=== PATIENT | male | born 1980 | race Caucasian/White ===

== ENCOUNTER 2017-08-18 07:53 | Inpatient (IN) | payer BC, OTHER ==
[~2017-08-18] VITALS: Ht 185.4 cm; Wt 72.6 kg
[2017-08-18 01:30] VITALS: BP 137/86
--- NOTE | 2017-08-19 01:20 | NUR ---
Pre-Admission Patient seen in intake office. Patient is noted to moderately intoxicated but stable at this time to continue with admission assessment. V/S noted as: 137/86, 64, 18, 98.0, 99%, 0/10. Policies on medication disposal explained and understood by patient. No Home Medications noted with patient. Will continue with admission process to unit.
[2017-08-19 01:45] LABS: *AMPHETAMINE, URINE POSITIVE (NEGATIVE); *BARBITURATE, URINE NEGATIVE (NEGATIVE); *CANNABINOID, URINE NEGATIVE (NEGATIVE); *COCCAINE, URINE POSITIVE (NEGATIVE); *OPIATE, URINE POSITIVE (NEGATIVE); *PHENCYCLIDINE SCREEN,URINE NEGATIVE (NEGATIVE)
[2017-08-19] MEDS ORDERED: ACETAMINOPHEN 325 MG TABLET PO PRN (01:45)
[2017-08-19] MEDS ORDERED: DICYCLOMINE HCL 20 MG TABLET PO PRN (01:45)
[2017-08-19] MEDS ORDERED: IBUPROFEN 400 MG TABLET PO PRN (01:45)
[2017-08-19] MEDS ORDERED: ONDANSETRON ODT 4 MG TAB.RAPDIS SL PRN (01:45)
[2017-08-19] MEDS ORDERED: MAG HYDROX/AL HYDROX/SIMETH 30 ML LIQUID UDC PO PRN (01:45)
[2017-08-19] MEDS ORDERED: MAGNESIUM HYDROXIDE 30 ML LIQUID UDC PO PRN (01:45)
[2017-08-19] MEDS ORDERED: HYDROXYZINE PAMOATE 25 MG CAPSULE PO PRN (01:45)
[2017-08-19] MEDS ORDERED: ONDANSETRON 4 MG/2 ML VIAL IM PRN (01:45)
[2017-08-19] MEDS ORDERED: diphenhydrAMINE 50 MG CAPSULE PO PRN (01:45)
[2017-08-19] MEDS ORDERED: MIRALAX 17 GM POWD.PACK PO PRN (01:45)
[2017-08-19] MEDS ORDERED: LOPERAMIDE HCL 2 MG CAPSULE PO PRN (01:45)
[2017-08-19] MEDS ORDERED: BUPRENORPHINE HCL 2 MG TAB.SUBL SL PRN (01:45)
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
[2017-08-19 04:00] VITALS: BP 110/60
[2017-08-19 06:52] LABS: RED BLOOD CELL COUNT(AUTO) 5.62 MIL/UL (4.7-6.1); WHITE BLOOD COUNT (AUTO) 7.4 K/UL (4.0-11.2)
[2017-08-19 06:53] LABS: BASOPHILS % (AUTO) 1.3 % (0.0-2.0); EOSINOPHILS % (AUTO) 3.1 % (0.0-7.0); HEMATOCRIT 47.6 % (40-50); HEMOGLOBIN 15.6 G/DL (14.0-18.0); LYMPHOCYTES % (AUTO) 32.8 % (20.5-51.5); MEAN CORPUSCULAR HEMOGLOBIN 27.8 UUG (27.0-31.0); MEAN CORPUSCULAR HGB CONC 33 g/dL (32.0-37.0); MEAN CORPUSCULAR VOLUME 84.6 FL (82.0-92.0); MONOCYTES % (AUTO) 7.3 % (0.0-11.0); NEUTROPHILS % (AUTO) 55.5 % (38.5-71.5); PLATELET COUNT (AUTO) 343 K/UL (150-450)
[2017-08-19 06:54] LABS: BASOPHILS # (AUTO) 0.1 K/uL (0.0-8.0); EOSINOPHILS # (AUTO) 0.2 K/uL (0.0-0.7); LYMPHOCYTES # (AUTO) 2.4 K/UL (0.8-4.8); MONOCYTES # (AUTO) 0.5 K/UL (0.1-1.30); NEUTROPHILS # (AUTO) 4.2 K/UL (1.8-8.9)
[2017-08-19 06:56] LABS: CARBON DIOXIDE 27 mmol/L (21-32); CHLORIDE 100 mmol/L (98-107); CREATININE 1.1 mg/dL (0.6-1.3); GLUCOSE 83 mg/dL (74-106); POTASSIUM 3.4 mmol/L (3.5-5.1); UREA NITROGEN, BLOOD 9 mg/dL (7-20)
[2017-08-19 06:57] LABS: ALANINE AMINOTRANSFERASE 34 U/L (16-63); ALKALINE PHOSPHATASE 107 U/L (50-136); AMYLASE 49 U/L (25-115); ASPARTATE AMINOTRANSFERASE 27 U/L (15-37); BILIRUBIN,TOTAL 0.7 mg/dL (0.1-1.0); TOTAL PROTEIN, SERUM 8.9 g/dL (6.4-8.2)
[2017-08-19 06:58] LABS: ETHANOL < 3 MG/DL (0-0); LIPASE 96 U/L (73-393); THYROID STIMULATING HORMONE 1.635 mIU/mL (0.358-3.740)
--- NOTE | 2017-08-19 07:08 | NUR ---
Start of Shift Endorsement received from nightshift nurse. Pt is a 37 y/o male admitted for Heroin and cocaine dependence. Pt has not been placed on a taper at this time. Symptoms will be managed by PRN medications at this time. PT did not receive any PRN medications. Pt is moderately withdrawing AEB COWS 9 at 1999. Pt reports sleeping 4 hours. VS WNL. Fulll Code. PT is alert and oriented x4. Pt is in STABLE condition at this time. Remains compliant with medication and diet regimen. All needs have been met, All safety measures in place per hospital policy. Bed in lowest position, side rails up x2, call-light within reach. Will continue to monitor
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
[2017-08-19 08:00] VITALS: BP 102/67
[2017-08-19] MEDS ORDERED: TUBERCULIN,PURIF.PROT.DERIV. 5 TU/0.1 ML TEST ID ONE (09:00)
[2017-08-19] MEDS ORDERED: POTASSIUM CHLORIDE 10 MEQ CAPSULE.SA PO ONE (09:30)
[2017-08-19] MEDS: MULTIVITAMINS,THERAPEUTIC TABLET PO SCH (09:49)
[2017-08-19 12:00] VITALS: BP 113/64
--- NOTE | 2017-08-19 12:35 | NUR ---
PRN Medications Administered PRN Motrin, Robaxin, Bentyl and Clonidine for withdrawal symptoms.
[2017-08-19] MEDS: METHOCARBAMOL 750 MG TABLET PO PRN (12:41)
[2017-08-19] MEDS: CLONIDINE HCL 0.1 MG TABLET PO PRN (12:41)
--- NOTE | 2017-08-19 12:50 | NUR ---
Medication Re-assessment Medications were effective, PT reports relief from chills, body aches and stomach cramps have stopped.
[2017-08-19 16:00] VITALS: BP 116/85
--- NOTE | 2017-08-19 19:06 | NUR ---
End of Shift Endorsement given to nightshift nurse. Pt is a 37 y/o male admitted for Heroin and cocaine dependence. Pt has not been placed on a taper at this time. Symptoms will be managed by PRN medications at this time. PT did received PRN Motrin, Clonidine, Robaxin and Bentyl. Medications were effective. Pt is moderately withdrawing AEB COWS 6 at 1600. Pt participated in activities and groups. Pt is cooperative and reports readiness for sobriety. Educated pt on S/E of medications. Intake: 1320ml, Void x3, BM x2. VS WNL. Fulll Code. PT is alert and oriented x4. Pt is in STABLE condition at this time. Remains compliant with medication and diet regimen. All needs have been met, All safety measures in place per hospital policy. Bed in lowest position, side rails up x2, call-light within reach. Will continue to monitor
[2017-08-19 20:30] VITALS: BP 104/69
[2017-08-20 00:27] VITALS: BP 103/59
--- NOTE | 2017-08-20 07:10 | NUR ---
Start of Shift Endorsement received from nightshift nurse. Pt is a 37 y/o male admitted for Heroin and cocaine dependence. Pt has been placed on a Subutex. PT is tolerating the taper and the detox process AEB COWS 4 at midnight. PT received PRN Subutex, Robaxin and Benadryl. Pt will began the Subutex taper today. Pt reports sleeping 8 hours. VS WNL. Fulll Code. PT is alert and oriented x4. Pt is in STABLE condition at this time. Remains compliant with medication and diet regimen. All needs have been met, All safety measures in place per hospital policy. Bed in lowest position, side rails up x2, call-light within reach. Will continue to monitor
[2017-08-20 08:00] VITALS: BP 101/59
[2017-08-20] MEDS: MULTIVITAMINS,THERAPEUTIC TABLET PO SCH (09:00)
[2017-08-20] MEDS: BUPRENORPHINE HCL 2 MG TAB.SUBL SL SCH ×3 (09:00→20:45)
[2017-08-20 10:09] LABS: HEPATITIS B SURFACE AG Negative (Negative)
[2017-08-20 12:00] VITALS: BP 114/62
--- NOTE | 2017-08-20 13:19 | NUR ---
Therapist prompted client to attend group today. Cleint agreed to attend group.
[2017-08-20 16:00] VITALS: BP 109/67
--- NOTE | 2017-08-20 18:52 | NUR ---
End of Shift Endorsement given to nightshift nurse. Pt is a 37 y/o male admitted for Heroin and cocaine dependence. Pt has been placed on a Subutex taper. PT is tolerating the taper AEB COWS 4. Pt participated in activities and groups. Pt is cooperative and reports readiness for sobriety. Educated pt diet and medication regimen. Educated pt on deep breathing technique to help relieve minor to moderate anxiety. Intake: 2400ml, Void x3, BM x1. VS WNL. Fulll Code. PT is alert and oriented x4. Pt is in STABLE condition at this time. Remains compliant with medication and diet regimen. All needs have been met, All safety measures in place per hospital policy. Bed in lowest position, side rails up x2, call-light within reach. Will continue to monitor
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
[2017-08-20 20:37] VITALS: BP 123/84
[2017-08-20] MEDS: METHOCARBAMOL 750 MG TABLET PO PRN (20:45)
[2017-08-20] MEDS: CLONIDINE HCL 0.1 MG TABLET PO PRN (20:45)
--- NOTE | 2017-08-20 20:45 | NUR ---
PRN Medication Administration Patient is verbalizing increased anxiety, agitation, chills, body aches, with inability of falling asleep. PRN Robaxin, Clonidine, and Benadryl administered as per order. Will continue to monitor.
--- NOTE | 2017-08-20 21:45 | NUR ---
PRN Medication Reassessment Patient noted in bed sleeping. Breathing even and non labored. Patient received PRN Clonidine, Robaxin, and Benadryl with medication noted to be effective. Will continue to monitor.
[2017-08-21 00:16] VITALS: BP 116/73
[2017-08-21 04:06] VITALS: BP 111/76
--- NOTE | 2017-08-21 07:10 | NUR ---
Start of Shift Endorsement received from nightshift nurse. Pt is a 37 y/o male admitted for Heroin and cocaine dependence. Pt has been placed on a Subutex. PT is tolerating the taper and the detox process AEB COWS 9 at 2100. PT received PRN Benadryl, Robaxin and Clonidine. Pt reports sleeping 6 hours. Pt reports feeling rested. VS WNL. Fulll Code. PT is alert and oriented x4. Pt is in STABLE condition at this time. Remains compliant with medication and diet regimen. All needs have been met, All safety measures in place per hospital policy. Bed in lowest position, side rails up x2, call-light within reach. Will continue to monitor
--- NOTE | 2017-08-21 07:21 | NUR ---
End of Shift Patient is in bed sleeping. Breathing even and non labored. Patient is a 37 year old male admitted 08/19/17 for Opiate Dependence under the care of Dr. Cifuentes and continues on a 5 day Subutex taper. No known allergies, Full code, Regular diet, placed on fall precautions, with skin noted intact. Patient given PRN Clonidine, Robaxin, and Benadryl. Last noted COWS 9. All needs attended to promptly. will endorse to continue plan of care as ordered.
[2017-08-21 08:00] VITALS: BP 107/52
[2017-08-21] MEDS: MULTIVITAMINS,THERAPEUTIC TABLET PO SCH (08:37)
[2017-08-21] MEDS ORDERED: BUPRENORPHINE HCL 2 MG TAB.SUBL SL SCH (09:00)
[2017-08-21 12:00] VITALS: BP 125/68
--- NOTE | 2017-08-21 12:49 | NUR ---
Therapist prompted client to attend daily group sessions. Client stated that he would make an effort to attend.
[2017-08-21] MEDS: BUPRENORPHINE HCL 2 MG TAB.SUBL SL SCH ×2 (14:55→21:44)
[2017-08-21 16:00] VITALS: BP 132/74
--- NOTE | 2017-08-21 18:49 | NUR ---
End of Shift Endorsement given to nightshift nurse. Pt is a 37 y/o male admitted for Heroin and cocaine dependence. Pt has been placed on a Subutex taper. PT is tolerating the taper and mildly withdrawing AEB COWS 3. Pt participated in activities and groups. Pt is cooperative and reports readiness for sobriety. Reinforced education on medication S/E and encouraged pt to participate in activities. Reinforced teaching deep breathing technique to help relieve minor to moderate anxiety. Intake: 1500ml, Void x4, BM x1. VS WNL. Fulll Code. PT is alert and oriented x4. Pt is in STABLE condition at this time. Remains compliant with medication and diet regimen. All needs have been met, All safety measures in place per hospital policy. Bed in lowest position, side rails up x2, call-light within reach. Will continue to monitor
--- NOTE | 2017-08-21 19:11 | NUR ---
Start of shift note Received report from day shift nurse. Pt is a 37 yo male, A+Ox4, presenting to [facility] for Opiate/Cocaine dependence. Pt has NKA, is on Full code status, and on Regular diet. Pt is on Fall precautions. Pt has HX of Anxiety, depression, and Hep C+. Pt is on 5 day Subutex taper, tolerated well. No s/s of distress noted at this time. Respirations even and unlabored. Will continue to monitor.
[2017-08-21 20:11] VITALS: BP 113/73
[2017-08-22 00:12] VITALS: BP 122/78
[2017-08-22 04:30] VITALS: BP 126/78
--- NOTE | 2017-08-22 06:53 | NUR ---
End of shift note Pt is a 37 yo male, A+Ox4, presenting to [facility] for Opiate/Cocaine dependence. Pt has NKA, is on Full code status, and on Regular diet. Pt is on Fall precautions. Pt has HX of Anxiety, depression, and Hep C+. Pt is on 5 day Subutex taper, tolerated well. Pt slept for a total of 5 HRS. Last COWS: 2 @0400. No s/s of distress noted at this time. Respirations even and unlabored. Will endorse to day shift nurse.
[2017-08-22 08:00] VITALS: BP 124/80
--- NOTE | 2017-08-22 08:00 | NUR ---
START OF SHIFT NOTE Received report from night nurse, 37 year old male admitted for Heroin and cocaine dependence. Patient is on 5 day Subutex taper. Patient has PMH of Anxiety, depression, and Hep C+. Per endorsement patient did not receive any PRN medications, last COWS score was 2, slept for 5 hours. Patient received awake, alert and oriented x4, Educated patient regarding plan of care for the day and medication regimen with good verbal understanding. Safety measures in place. call light with in reach, will continue to monitor.
[2017-08-22] MEDS: BUPRENORPHINE HCL 2 MG TAB.SUBL SL SCH ×3 (08:59→21:14)
[2017-08-22] MEDS: MULTIVITAMINS,THERAPEUTIC TABLET PO SCH (08:59)
[2017-08-22 12:00] VITALS: BP 139/85
--- NOTE | 2017-08-22 15:00 | NUR ---
REFUSED SUBUTEX 2MG Patient refused his scheduled Subutex at 1500 offered x3 risk and benefits explained, patient verbalized understanding. notified.
[2017-08-22 16:00] VITALS: BP 114/82
--- NOTE | 2017-08-22 19:16 | NUR ---
END OF SHIFT NOTE Patient is alert oriented x4. 37 year old male admitted for Opioid/Cocaine dependence. Patient has PMH of Anxiety, depression, and Hep C+. Patient cont on 5 days Subutex taper tolerating well. Medications were effective in reducing withdrawal symptoms. Patient did not receive any PRN during shift. Patient refused his scheduled Subutex at 15oo offered x3 risk and benefits explained, patient verbalized understanding. Skin intact warm and dry to touch. Last COWS score was 2. Patient remained compliant with treatment plan and medication regime. All safety measures in place, Call light within reach. Patient endorsed to night nurse in stable condition.
--- NOTE | 2017-08-22 19:30 | NUR ---
Start of Shift Patient is a 37 year old male admitted on 08-19-17 for Opiate detox. He is on a five day Subutex taper. He refused last dose of Subutex. Reports feeling "good". last COWS 2 at 1600. Patient has pmh of anxiety, depression and Hepatitis C. Patient denies depression, SI or HI. Mood appears stable . Attending unit groups. He is a full code regular diet and has NKA. He is on fall precautions, safety measures in place, bed locked in lowest position with 2 side rails up for safety. Call light within reach report received from AM nurse.
[2017-08-22 20:00] VITALS: BP 124/84
[2017-08-22] MEDS: LOPERAMIDE HCL 2 MG CAPSULE PO PRN ×2 (20:45→22:32)
--- NOTE | 2017-08-22 20:45 | NUR ---
PRN medication Patient with complaints of diarrhea. Loperamide 2 mg PO given at 2044 with effect pending Patient with complaints of difficulty sleeping Benadryl 50 mg PO given at 2044 with effect pending. Addendum: 08/22/17 at 2237 by ARYA HEARN RN documented on wrong patient
--- NOTE | 2017-08-22 21:45 | NUR ---
reassessment of patient Loperamide 2 mg PO given at 2044 with effect noted after one hour. No further diarrhea noted Benadryl 50 mg PO given at 2044 with effect noted after one hour. Patient resting in bed eyes closed. Addendum: 08/22/17 at 2236 by ARYA HEARN RN documented on wrong patient
--- NOTE | 2017-08-23 | NUR ---
VITAL SIGNS REFUSED. COWS DEFERRED 0000 vital signs refused. Patient requested to sleep. COWS deferred PAtietn reting in bed, eyes closed, breathing even and unlabored. Respirations 16.
--- NOTE | 2017-08-23 04:16 | NUR ---
VITAL SIGNS REFUSED. COWS DEFERRED 0400 vital signs refused. Patient requested to sleep. COWS deferred patient resting in bed, eyes closed, breathing even and unlabored. Respirations 16.
--- NOTE | 2017-08-23 06:49 | NUR ---
End of shift Patient is a 37 year old male admitted on 08-19-17 for Opiate detox. He is on a five day Subutex taper. Patient has PMH of anxiety, depression and Hepatitis C. Mood appears dysthymic, patient denies SI or HI. Attending unit groups. He is a full code regular diet and has NKA. VS at 1999 BP 124/84, P 83, R 18, SPO2 99% on RA, T 98.6. COWS 2. Slept a total of 7 hours. Intake 855 ml output 2 voids. Safety measures in place, bed locked in lowest position with 2 side rails up for safety. Call light within reach report given to AM nurse.
--- NOTE | 2017-08-23 07:50 | NUR ---
START OF SHIFT NOTE Received report from night nurse, 37 year old male admitted for Heroin and cocaine dependence. Patient is on 5 day Subutex taper. Patient has PMH of Anxiety, depression, and Hep C+. Per endorsement patient did not receive any PRN medications, last COWS score was 2, slept for 7 hours. Patient received awake, alert and oriented x4, Educated patient regarding plan of care for the day and medication regimen with good verbal understanding. Safety measures in place. call light with in reach, will continue to monitor.
[2017-08-23 08:00] VITALS: BP 131/78
[2017-08-23] MEDS: MULTIVITAMINS,THERAPEUTIC TABLET PO SCH (08:38)
[2017-08-23] MEDS ORDERED: BUPRENORPHINE HCL 2 MG TAB.SUBL SL SCH (09:00)
[2017-08-23 12:00] VITALS: BP 112/68
[2017-08-23 16:00] VITALS: BP 113/74
--- NOTE | 2017-08-23 17:17 | NUR ---
Therapist prompted client to attend group today. Client agreed to attend
--- NOTE | 2017-08-23 19:04 | NUR ---
END OF SHIFT NOTE Patient is alert oriented x4. 37 year old male admitted for Opioid/Cocaine dependence. Patient has PMH of Anxiety, depression, and Hep C+. Patient completed his 5 days Subutex taper tolerated well. Medications were effective in reducing withdrawal symptoms. Patient did not receive any PRN during shift. Skin intact warm and dry to touch. Last COWS score was 1. Patient remained compliant with treatment plan and medication regime. Patient scheduled for discharge in AM. All safety measures in place, Call light within reach. Patient endorsed to night nurse in stable condition.
--- NOTE | 2017-08-23 19:30 | NUR ---
Start of Shift Patient is a 37 year old male admitted on 08-19-17 for Opiate detox. He has completed his Subutex taper. Patient has pmh of anxiety, depression and Hepatitis C. Patient denies depression, SI or HI. Mood appears stable, patient reports periods of frustration but overal general optimistic mood. Attending unit groups. He is a full code regular diet and has NKA. He is on fall precautions, safety measures in place, bed locked in lowest position with 2 side rails up for safety. Call light within reach report received from AM nurse.
[2017-08-23 20:00] VITALS: BP 116/75
[2017-08-23] MEDS ORDERED: METH-406 PO (22:29)
[2017-08-23] MEDS ORDERED: DIPH50CA37 PO (22:29)
[2017-08-23] MEDS ORDERED: IBUP-1953 PO (22:29)
[2017-08-23] MEDS ORDERED: DICY20TA28 PO (22:29)
--- NOTE | 2017-08-24 | NUR ---
COWS deferred/VS refused Patient refused 0000 vital signs. COWS deferred due to sleep
--- NOTE | 2017-08-24 04:00 | NUR ---
COWS deferred/VS refused Patient refused 0400 vital signs. COWS deferred due to sleep
--- NOTE | 2017-08-24 06:50 | NUR ---
ENd of Shift Note Patient is a 37 year old male admitted on 08-19-17 for Opiate Detox. He has completed a five day Subutex taper. Patient has PMH of anxiety, depression and Hepatitis C. Mood appears dysthymic, affect flat, with patient admitting to periods of frustration "I just want to get on with this" as well as periods of feeling optimistic regarding future. Patient denies SI or HI. Attending unit groups. He is a full code regular diet and has NKA. VS at 1999 BP 116/75, P 90, R 16, SPO2 99% on RA, T 97.8. COWS 2. Slept a total of 7 hours. Intake 1250 ml output 2 voids. Safety measures in place, bed locked in lowest position with 2 side rails up for safety. Call light within reach report given to AM nurse.
--- NOTE | 2017-08-24 07:30 | NUR ---
START OF SHIFT Received report from night nurse. 37 year old male patient admitted on 08/19/17 for opiate and cocaine withdrawals. Pt has completed ordered 5 day Subutex taper and is medically cleared for discharge. No acute s/s of withdrawals over night, most recent COWS 2. Pt states he is "a little anxious." Pt slept for 7 hours, no PRN medication needed or administered. V/S remain stable and wnl. Pt is aware of discharge and states he is ready. Pt verbalizes feelings to nurse and is encouraged to socialize with peers and attend groups. Pt remains compliant. All needs met at this time, safety measures in place, will continue to monitor.
[2017-08-24 08:02] VITALS: BP 112/72
[2017-08-24] MEDS: MULTIVITAMINS,THERAPEUTIC TABLET PO SCH (08:16)
--- NOTE | 2017-08-24 09:31 | NUR ---
D/C NOTE Pt is A/O x4. V/S remain WNL. Pt denies SI/HI or hallucinations. Pt shows no s/s of acute withdrawal at this time, and is stable. has medically cleared pt for d/c . Education on Hepatitis C, smoking cessation and medication side effects provided. Pt verbalizes understanding. All pt belongings are in belonging bag, including prescriptions, pt did not have any home medications. Refuses PNU vaccination. Pt is being accompanied by MACHINE MAINTENANCE MECHANIC at this time to be transported to rehab. All needs met.
== END 2017-08-24 09:31 | disposition other institution (70) | DRG 895 ==
LOC: SRC 08-19 00:39
PROVIDERS: ADMIT Internal Medicine; ATTEND Internal Medicine
PROC: HZ2ZZZZ Detoxification Services for Substance Abuse Treatment (ICD-10-PCS; principal; 2017-08-19)
PROC: HZ41ZZZ Group Counseling for Substance Abuse Treatment, Behavioral (ICD-10-PCS; 2017-08-20)
DX: F11.23 Opioid dependence with withdrawal (principal); F14.20 Cocaine dependence, uncomplicated; F15.20 Other stimulant dependence, uncomplicated; F17.210 Nicotine dependence, cigarettes, uncomplicated; Z87.828 Personal history of other (healed) physical injury and trauma; E87.6 Hypokalemia; F41.9 Anxiety disorder, unspecified; Z91.89 Other specified personal risk factors, not elsewhere classified; F32.9 Major depressive disorder, single episode, unspecified; B18.2 Chronic viral hepatitis C
CPT/HCPCS: 36415; 70030-TC; 80307; 80324; 80353; 80361; 83690; 83735; 84443; 85025; 86580; 86592; 86705; 86803; 87340; 87806; G0480; Q0163